=== PATIENT | male | born 1980 | race Caucasian/White ===

== ENCOUNTER 2025-04-27 12:38 | Emergency (ER) | payer MEDICAID, SELFPAY ==
--- NOTE | ~2025-04-27 | XR_ITS ---
EXAMINATION: XR FOOT, RIGHT CLINICAL INFORMATION: wound, pain 4th and 5th toes COMPARISON: None available. TECHNIQUE: AP, lateral, and oblique views of the right foot. FINDINGS: No fracture, dislocation, or suspicious bone lesion. No focal area of osteopenia or erosion to suggest radiographic changes of osteomyelitis. The fourth and fifth digits are intact. There is no periostitis present. The midfoot and hindfoot appear normal. Normal plantar arch. There is soft tissue swelling of the fourth and fifth digits. XR/XR foot RT min 3V IMPRESSION: 1. No acute bony abnormalities. No radiographic evidence of osteomyelitis of the fourth and fifth digits. Electronically signed by: Jay Zarate MD 04/27/2025 01:11 PM EDT
[2025-04-27 12:47] VITALS: BP 116/72; BP 123/67; PULSE 72; PULSE 88; RESP 18; TEMP 36.7; O2SAT 96; O2SAT 97; BMI 20.5
--- NOTE | 2025-04-27 12:50 | ED_ITS ---
HPI - Skin/Abscess/Foreign Bdy General Chief complaint: Skin/Abscess/Foreign Body Stated complaint: open wound r forearm 2in drug use this am. Time Seen by Provider: 04/27/25 12:49 Source: patient and EMS Mode of arrival: EMS Limitations: no limitations History of Present Illness ED Provider: Leonid Weems PA-C HPI narrative: 45 yo male with history of polysubstance use disorder (IV heroin and cocaine), homelessness who presents to the ER via EMS for evaluation of an infected and draining abscess on his right forearm that started a few days ago after injecting drugs. He states he last used heroin last night and cocaine this morning. He reports depression and wants to stop using drugs. Not suicidal He denies history of recurrent abscesses and has never required I&D before. He reports the scab came off yesterday and the abscess on his arm is now draining green/yellow pus. He reports chills and subjective fevers. He walks all day collecting cans and reports pain and swelling to his right 4th and 5th toes with a wound there. Does not inject into his feet. Not diabetic that he knows of. MD complaint: abscess/boil and other (detox/recovery) Onset (ago): day(s) Location: RUE Severity: moderate Severity scale (1-10): 5 Quality: burning and aching Pain Consistency: constant Context: IVDA Associated symptoms: fever and chills Treatments prior to arrival: attempted to drain pus at home Related Data Previous Rx's ?Medication ?Instructions ?Recorded cephalexin 500 mg capsule 500 mg PO Q6H 7 days #28 cap s 04/27/25 doxycycline monohydrate 100 mg 100 mg PO BID #14 caps 04/27/25 capsule Allergies Allergy/AdvReac Type Severity Reaction Status Date / Time nickel Allergy Mild Rash Verified 04/27/25 12:57 Review of Systems 2 Review of Systems: Yes all other systems are reviewed and are negative PMFSH Social History Social History Smoked in Last 30 Days: No Use of substances other than those prescribed or required for medical reasons: Yes Substance Use Type: Crack/Cocaine and Heroin Advance Directives: No Advance Directives Information Provided: No Physical Exam 2 Exam: Exam: Appearance: lethargic. Oriented X3. unkempt Head: normocephalic, atraumatic. Eyes: Pupils equal, round and reactive to light. ENT: Pharynx normal. No tonsillar swelling or exudate. Neck: Normal inspection. Neck supple. CVS: Normal heart rate and rhythm. Pulses normal. Respiratory: No respiratory distress. Breath sounds normal. Abdomen: Soft and nontender. +BS x4 Skin: Skin warm and dry. Normal skin color. Normal skin turgor. No Extremities: No lower extremity edema. toes and feet are dirty w/ black soot between toes. right 4th toe is swollen and tender. there is an ulceration on the bottom of the 4th toe that abuts the 5th toe, very tender, macerated skin, no drainage. dorsal aspect of the right forearm with a 3cm deroofed abscess w/ yellow drainage, mild surrounding erythema and tenderness. 2+ radial pulse, NV intact Neuro/psych: Oriented X 3. No motor deficit. No sensory deficit. CN II-XII intact. Normal speech and cognition, falls asleep, appears intoxicated Vital Signs: Vital Signs: Last Vital Signs Temp 98.5 F 04/28/25 01:42 Pulse 61 04/28/25 03:01 Resp 14 04/28/25 03:01 BP 110/56 L 04/28/25 03:01 Pulse Ox 96 04/28/25 03:01 O2 Del Method Room Air 04/28/25 03:01 BMI result Body Mass Index 20.5 Course Reevaluation(s) Reevaluation #1: Physician observation started at 1435. Patient placed in physician observation because patient is awaiting recovery team evaluation. At the time observation was started patient's vital signs were stable. Patient is lethargic, arouses to voice, oriented. medically cleared. started on PO abx for abscess on RUE. Neuro exam is non-focal. CV: RRR and lungs are clear. Will continue to monitor. Reevaluation #2: Time: 19:09 Date: 04/27/25 Provider: Christopher Staley MD Patient in physician observation for psychiatric/opiate use disorder.? Patient states that he uses 10 bags of heroin per day and last used last night. The patient states that he feels like he is withdrawing from opiates. Patient states he has taken methadone in the past in his interested in getting into a methadone maintenance program. Patient has been accepted into the [facility] treatment program for tomorrow (04/28/2025) at 08:00. Patient does appear to be withdrawing from opiates therefore I ordered methadone 40 mg orally. Will continue to monitor. Reevaluation #3: Time: 07:46 Date: 04/28/25 Provider: Myra Olea, DO Patient in physician observation for psychiatric evaluation.? No acute events reported overnight. No current complaints. VS stable.? Patient is in bed search status for [facility] Will continue to monitor. Additional Reevaluation(s): phys obs ended 856am going to [facility] Myra Olea DO 04/28/25 0857 Medications Administered Generic Name Dose Route Start Last Admin Trade Name Freq PRN Reason Stop Dose Admin Cephalexin HCl 500 mg 04/27/25 14:15 04/28/25 08:25 Cephalexin 500 Mg Capsule PO 500 mg Q6H [facility] Administration Doxycycline Monohydrate 100 mg 04/27/25 14:15 04/28/25 08:25 Doxycycline Monohydrate 100 Mg Capsule PO 100 mg BID [facility] Administration Discontinued Medications Generic Name Dose Route Start Last Admin Trade Name Freq PRN Reason Stop Dose Admin Methadone HCl 40 mg 04/27/25 19:09 04/27/25 20:07 Methadone Hcl 20 Mg/2 Ml Oral.Conc PO 04/27/25 19:10 40 mg ONCE ONE Administration Medical Decision Making Medical Decision Making [facility] Narrative: 45-year-old male with history of polysubstance use disorder presenting to the ER for evaluation of an abscess on his right forearm. It is freely draining purulent material. No need for I and D today. There is some mild surrounding cellulitis. Compartments are soft and compressible. Vital signs are stable. He has a mild leukocytosis of 12.6. Cultures were sent. His labs are otherwise unremarkable. He is medically cleared. Recovery team consulted. He is undergoing a detox bed search. Differential Diagnosis Differential Diagnoses: The differential diagnosis associated with the presentation includes Abscess, cellulitis, wound due to xylozine, osteomyelitis, Admission/Observation Consideration of admission/observation: Escalation of care including admission/observation considered Lab Data [facility] Lab Attestation statement: I reviewed the patient's lab results. Mild leukocytosis, mild anemia, normal LFTs and chemistry 04/27/25 13:51 04/27/25 13:51 Labs: Lab Results 04/27/25 Range/Units 13:51 WBC 12.6 H (4.8-10.8) X10*3/uL RBC 4.80 (4.60-5.80) X10*6/uL Hgb 12.5 L (14.0-18.0) g/dl Hct 39.3 L (42.0-52.0) % MCV 81.9 (80.0-98.0) fL MCH 26.0 L (27.0-33.0) pg MCHC 31.8 (31.0-36.0) g/dl RDW 13.6 (11.0-16.0) % Plt Count 313 (160-400) X10*3/uL MPV 9.1 L (9.4-12.4) fL Immature Gran % (Auto) 0.4 (0.0-0.4) % Neut % (Auto) 86.4 H (45-73) % Lymph % (Auto) 8.1 L (20-40) % Calloway % (Auto) 3.8 (2-11) % Eos % (Auto) 0.8 (0-4) % Baso % (Auto) 0.5 (0-2) % Lymph # (Auto) 1.0 L (1.2-4.9) X10*3/uL Calloway # (Auto) 0.5 (0.1-1.2) X10*3/uL Eos # (Auto) 0.1 (0.0-0.4) X10*3/uL Baso # (Auto) 0.1 (0.0-0.2) X10*3/uL Abs Immat Gran (auto) 0.05 H (0.00-0.03) X10*3/uL Absolute Neuts (auto) 10.9 H (2.0-8.3) x10*3/uL Absolute Nucleated RBC 0.000 (0.0-0.012) X10*3/uL Nucleated RBC % (auto) 0.0 (0.0-0.2) /100WBC Sodium 138 (135-145) mmol/L Potassium 4.2 (3.3-5.1) mmol/L Chloride 103 (96-108) mmol/L Carbon Dioxide 27 (22-29) mmol/L Anion Gap 12 (12-20) BUN 11 (9-16) mg/dL Creatinine 0.59 (0.5-1.4) mg/dL Estim Creat Clear Calc 156.2 Estimated GFR > 60 Random Glucose 95 (60-115) mg/dL Lactic Acid 0.8 (0.5-2.0) mmol/L Calcium 9.2 (8.4-10.2) mg/dL Magnesium 2.1 (1.6-2.6) mg/dL Total Bilirubin 0.4 (0.0-1.0) mg/dL Direct Bilirubin 0.2 (0.0-0.5) mg/dL AST 26 (5-37) U/L ALT 19 (0-40) U/L Alkaline Phosphatase 73 (39-117) U/L Total Protein 7.7 (6.5-8.0) g/dL Albumin 3.9 (3.5-5.0) g/dL Ethyl Alcohol < 10 mg/dL Independent Interpretation I performed an independent interpretation of an: Plain X-Ray Interpretation: No obvious fracture or bony abnormality of the right foot Radiology Impression Discussion of test interpretation with radiology: I have reviewed the radiologist's reading. Independent Historian Clinical information obtained from an independent historian. History obtained from or confirmed by: EMS Prescription Management I considered prescription management with: Pain Medication and Antibiotic Chronic Conditions Patient?s care impacted by: Other (Polysubstance use disorder) Social Determinants Patient?s care significantly limited by Social Determinants of Health including: Inadequate housing, Problems related to primary support group and Other Social Determinant of Health Critical Care Time Critical Care Time Critical Care Time: No Discharge Plan Discharge Clinical Impression: Polysubstance use disorder Cellulitis Qualifiers: Site of cellulitis: extremity Site of cellulitis of extremity: upper extremity Laterality: right Qualified Code(s): L03.113 - Cellulitis of right upper limb Abscess of skin or subcutaneous tissue Qualifiers: Site of cutaneous abscess: extremity Site of cutaneous abscess of extremity: u pper extremity Laterality: right Qualified Code(s): L02.413 - Cutaneous abscess of right upper limb Patient Disposition: Home, Self-Care Instructions: Abscess (ED), Polysubstance Use Disorder (ED) Additional Instructions: Opiate use disorder You were seen in our Emergency Department today for treatment of opiate use disorder. You may have been dosed with medication for opiate use disorder (MOUD) in the form of suboxone or methadone. You may experience feeling some withdrawal symptoms and this is normal. The? dose in the Emergency Department is a starting dose and meant to be titrated up once you follow up with a clinic. Please do not feel discouraged, it is a process. The nurse has reviewed with you where to follow up and what information to bring with you, to continue treatment. You also may have been given naloxone (narcan) to take home with you. This medication is used to potentially treat opiate overdose. If you decide you want to stop or cut down on how much you?re using, you can call or walk into our outpatient Addiction Treatment office: [facility] (M-F 9am-5p) [address], [address] [phone] You may have been provided with safer injection?items, please take time to take care of YOU and your health. Use new supplies whenever possible to lessen the chances of infections and other illnesses.? ?If you need more supplies, please go [facility],? [address] [place] [address] OR you can call or text to coordinate delivery of safer supplies. Take the prescribed antibiotics as directed, complete the entire course and do not miss any doses Keep the wound clean and covered. Use cotton or gauze between your 4th and 5th toes on your right foot to keep the area dry You were also provided a list of several treatment providers in the area.? If you experience any worsening symptoms you cannot control please return to the ED or call 911. Please follow up at your next appointment. Things to look out for are fevers, chest pain, shortness of breath, severe pain, dizziness, fainting or any other concerns. Prescriptions: New doxycycline monohydrate 100 mg capsule 100 mg PO BID Qty: 14 0RF cephalexin 500 mg capsule 500 mg PO Q6H 7 Days Qty: 28 0RF Stand Alone Forms: Substance Abuse Outpt Detox Print Language: Chinese
[2025-04-27 13:58] LABS: MANUAL DIFF FLAG NO
[2025-04-27 14:00] LABS: Hematocrit 39.3 % (42.0-52.0); Hemoglobin 12.5 g/dl (14.0-18.0); Imm Gran Abs Auto 0.05 X10*3/uL (0.00-0.03); Imm Gran Pct Auto 0.4 % (0.0-0.4); Lymphocytes Absolute Auto 1.0 X10*3/uL (1.2-4.9); Mean Corpuscular HGB Conc 31.8 g/dl (31.0-36.0); Mean Corpuscular Hemoglobin 26.0 pg (27.0-33.0); Mean Corpuscular Volume 81.9 fL (80.0-98.0); NRBC Abs Auto 0.000 X10*3/uL (0.0-0.012); NRBC Pct Auto 0.0 /100WBC (0.0-0.2); Platelet Count 313 X10*3/uL (160-400); Red Blood Count 4.80 X10*6/uL (4.60-5.80); White Blood Count 12.6 X10*3/uL (4.8-10.8)
[2025-04-27 14:22] LABS: Alanine Aminotransferase 19 U/L (0-40); Albumin Level 3.9 g/dL (3.5-5.0); Anion Gap 12 (12-20); Aspartate Amino Transferase 26 U/L (5-37); Blood Urea Nitrogen 11 mg/dL (9-16); Calcium 9.2 mg/dL (8.4-10.2); Carbon Dioxide 27 mmol/L (22-29); Chloride 103 mmol/L (96-108); Creatinine Clr Calc Pharmacy 156.2; Estimated Glomerular Filt Rate > 60; Magnesium 2.1 mg/dL (1.6-2.6); Potassium 4.2 mmol/L (3.3-5.1); Sodium 138 mmol/L (135-145); Total Protein 7.7 g/dL (6.5-8.0)
[2025-04-27 14:45] LABS: Alkaline Phosphatase 73 U/L (39-117)
--- NOTE | 2025-04-27 17:49 | PC.NURSE ---
Pt has been sleeping mostly. nad. feet cleasned/dried by tech. Pt doesn't feel like he's capable of makin git to [facility] [place] even though we're offering a ride.
--- NOTE | 2025-04-27 18:56 | MHC.CARE ---
Pt. was tentatively accepted to [facility] in [place] for tomorrow, pt. completed intake on 04/27/25, please call at 8am on 04/28/25, and secure his bed. Pt. will need a Lyft. The phone number is . Thank you! The address to [facility] is [address] [place] [address]
--- NOTE | 2025-04-27 18:59 | PC.NURSE ---
ambulatory to BR with steady gait.
[2025-04-27 20:03] VITALS: BP 134/79; PULSE 71; RESP 16; TEMP 36.8; O2SAT 99
[2025-04-27] MEDS: methADONE HCl 20 MG/2 ML ORAL.CONC 40 MG PO (20:07)
--- NOTE | 2025-04-28 00:18 | PC.NURSE ---
Pt appears to be sleeping on stretcher. Respirations equal and unlabored. Skin p/w/d. Pt not in any apparent distress.
[2025-04-28 01:42] VITALS: BP 116/70; PULSE 59; RESP 16; TEMP 36.9; O2SAT 97
[2025-04-28 03:01] VITALS: BP 110/56; PULSE 61; RESP 14; O2SAT 96
--- NOTE | 2025-04-28 08:25 | PC.NURSE ---
assumed care of patient at 0700, patient is sleeping at this time, resp even and unlabored. patient medicated per SEP, given water but states he does not want breakfast at this time. CARE team working on tx to [facility]
--- NOTE | 2025-04-28 08:29 | MHC.CARE ---
Pt will be sent to [facility] for a detox admission via [facility].
[2025-04-28 09:09] VITALS: BP 136/86; PULSE 102; RESP 16; O2SAT 98
== END 2025-04-28 09:09 | disposition home or self-care (01) ==
PROVIDERS: Physician Assistant; Emergency Provider Emergency Medicine
DX: F19.90 Other psychoactive substance use, unspecified, uncomplicated (principal); L03.113 Cellulitis of right upper limb; L02.413 Cutaneous abscess of right upper limb; Z59.00 Homelessness unspecified
CPT/HCPCS: 36415; 73630; 80048; 80076; 80307; 83605; 83735; 85025; 87040; 99284; S9485

== ENCOUNTER → 2025-04-27 12:56 | Outpatient (BNV) | payer MEDICAID, SELFPAY | PROVIDERS: Emergency Provider Emergency Medicine; Visit Provider Radiology Diagnostic Radiology | DX: S91.104A Unspecified open wound of right lesser toe(s) without damage to nail, initial encounter (principal) | CPT/HCPCS: 73630 ==